=== PATIENT | female | born 2005 | race Asian ===

== ENCOUNTER 2023-11-02 13:01 | Outpatient (AMB) | payer OTHER, SELFPAY ==
--- NOTE | 2023-11-02 13:18 | A.OFFVIS_ITS ---
VS Expanded 11/02/23 13:19 11/08/23 14:44 Height 5 ft 4 in 5 ft 4 in Weight 175 lb 4.28 oz 175 lb BMI 30.1 30.0 Intake Visit Reasons: Overweight/CONFIRMED Nutrition Presentation Details: Pt presents for MNT for obesity. The Pt was referred by Dr. GLYNN Chaudhry Pt reports having gained about 30 lbs in 2 yrs. Pt reports working on reducing fat and keeping physically active however not losing weight. hunger vs appetite= unaware Typical routine : COFFEE NO SUGAR (BLACK OR with CREAM (2 CUPS /DAY) beverages: JUICES OR WATER OR ZERO skips meals and have fast food (fries/nuggets) CEREAL AT NIGHT iwth milk FISH/WK: NOT INCLUDING ( DOES NOT LIKE) FRUITS: 0-1/D VEGETABLES: YOGURT: 2/day etoh:/smoking: denies gym: 5 times a week alternate between running and weight lifting meds sertraline 500 mg/d frerrous sulfate 325 mg/d certririzine 10 mg/d BS Monitoring Most Recent Diabetes Results: No Data to Display MBM-Nwjfupn-Ft.Jeor Equation Height: 5 ft 4 in Weight: 175 lb Resting Metabolic Rate: 1549.59 Calculated Activity Level: Mild Activity Calories Needed to Maintain Weight: 2130.69 Diagnosis Nutrition problem #1: excessive energy intake As related to (etiology) #1: diagnosis As evidenced by (sign/symptom) #1: knowledge deficit of diet [facility] Medical History (Updated 11/08/23 @ 14:44 by Viri Tee, RD, LDN) Anxiety Depression Overweight Assessment & Plan Assessment & Plan (1) Overweight: Comment: BMI today at 30 (11/02/23) Code(s): E66.3 - Overweight Category: Medical Plan: Wt: 79 Kg ( 11/2023 ) Est kcal needs as per MSJ: 2100 (40% carb, 30% protein/fat) Est fluid needs as per 25-30 ml/d: 2400 Est prot per day as per 1 g/kg bw: 79 Recommend fiber intake : 8-10 g per day and gradually increase to 25-28 g per day for women and 35-38 g for men or as tolerated Recommend sodium intake per day : less than 2000 mg Educated patient on: ( R = reviewed V = verbalizes understanding N/R = needs review N/A = not applicable * Food sources of carbohydrate, adequate serving sizes and its role in various health conditions: R * Differences between complex carbohydrates a simple carbohydrates, role of fiber in diet: R V N/R * Lean protein sources of foods: R * Differences between types of fats and role in diet (mono on saturated fat fatty acids, saturated fatty acids, trans fats): R V N/R * Food sources of sodium in salt and healthy modifications for heart health in kidney health: R V R/V * Vitamins and minerals: R V N/R * Healthy plate method concept: R * Physical activity: Benefits a precaution: R V N/R Patient Instructions: Practice mindful eating Work on having scheduled meals , 3 meals per day consisting of 60 g of carbohydrates following healthy plate method And reduce snacks to 0-20 g of carbs (limited to 2-3 snacks per day See meal plan ideas Coding Level of Care Code Nutr Indiv Intake (82874) Diagnoses Overweight E66.3 Time Spent (min) 30
[2023-11-02 13:19] VITALS: BMI 30.1
== END 2023-11-02 13:47 | disposition home or self-care (01) ==
PROVIDERS: PCP Internal Medicine; Visit Provider Dietitian, Registered
DX: E66.3 Overweight (principal)

== ENCOUNTER → 2023-11-02 13:01 | Outpatient (BNVA) | payer OTHER, SELFPAY | PROVIDERS: PCP Internal Medicine; Visit Provider Dietitian, Registered | DX: E66.3 Overweight (principal); Z68.30 Body mass index [BMI] 30.0-30.9, adult | CPT/HCPCS: 97802 ==